=== PATIENT | female | born 1990 | race Caucasian/White ===

== ENCOUNTER 2020-09-13 04:00 | Inpatient (IN) | payer OTHER ==
[~2020-09-13] VITALS: Ht 160 cm; Wt 84.8 kg
[2020-09-13 04:37] LABS: BASOPHILS % (AUTO) 0.3 % (0.0-2.0); EOSINOPHILS # (AUTO) 0.1 K/uL (0.0-0.4); EOSINOPHILS % (AUTO) 0.4 % (0.0-4.0); HEMATOCRIT 39.6 % (36-48); HEMOGLOBIN 13.4 g/dL (12.0-16.0); LYMPHOCYTES # (AUTO) 1.6 K/uL (1.0-5.5); LYMPHOCYTES % (AUTO) 12.1 % (20.5-51.5); MEAN CORPUSCULAR HEMOGLOBIN 31 pg (27-31); MEAN CORPUSCULAR HGB CONC 34 % (32-36); MEAN CORPUSCULAR VOLUME 92 fL (79.0-98.0); MONOCYTES # (AUTO) 0.8 K/uL (0.0-1.0); MONOCYTES % (AUTO) 6.2 % (1.7-9.3); NEUTROPHILS # (AUTO) 10.6 K/uL (1.8-7.7); PLATELET COUNT (AUTO) 209 K/uL (130-430); RED BLOOD CELL COUNT(AUTO) 4.29 MIL/uL (4.2-6.2)
[2020-09-13 04:54] LABS: ALBUMIN 2.6 g/dL (3.4-4.8); CALCIUM 8.6 mg/dL (8.4-11.0); CREATININE 0.63 mg/dL (0.55-1.30); POTASSIUM 3.5 mmol/L (3.5-5.1); TOTAL BILIRUBIN 0.4 mg/dL (0.0-1.0)
[2020-09-13] MEDS ORDERED: METOCLOPRAMIDE HCL 10 MG/2 ML VIAL IVP ONE ×2 (05:00→15:45)
[2020-09-13] MEDS ORDERED: CEFAZOLIN 2 GM IVPB PREMIX 50 ML IV ONE (05:00)
[2020-09-13 05:05] VITALS: BP_SYST 118
[2020-09-13] MEDS: LR 1,000 ML IV SCH ×2 (05:13→06:52)
[2020-09-13 07:12] LABS: BILIRUBIN,URINE NEGATIVE (NEGATIVE); BLOOD, URINE 1+ (NEGATIVE); CLARITY/URINE CLEAR (CLEAR); COLOR,URINE YELLOW (YELLOW); GLUCOSE,URINE NEGATIVE (NEGATIVE); KETONES,URINE 1+ (NEGATIVE); LEUKOCYTE ESTERASE ,URINE 1+ (NEGATIVE); NITRITE, URINE NEGATIVE (NEGATIVE); PROTEIN URINE NEGATIVE (NEGATIVE); UROBILINOGEN,URINE 0.2 (0.2-1.0)
[2020-09-13] MEDS ORDERED: KETOROLAC TROMETHAMINE 60 MG/2 ML VIAL IM PRN (08:15)
[2020-09-13] MEDS ORDERED: ONDANSETRON HCL 4 MG/2 ML VIAL IVP PRN (08:15)
[2020-09-13] MEDS ORDERED: NALBUPHINE HCL 10 MG/ML AMP IVP PRN (08:15)
[2020-09-13] MEDS ORDERED: DIPHENHYDRAMINE INJ 50 MG/ML VIAL IVP PRN (08:15)
[2020-09-13] MEDS ORDERED: MORPHINE SULFATE 10MG/10ML PF AMP SP SCH (08:15)
[2020-09-13] MEDS ORDERED: NALOXONE HCL 0.4 MG/ML AMP (NARCAN) IVP PRN ×3 (08:15→08:45)
[2020-09-13] MEDS ORDERED: fentaNYL CITRATE/PF 100 MCG/2 ML AMP IVP PRN ×2 (08:15)
[2020-09-13 08:33] LABS: BACTERIA,URINE None Seen /HPF (None Seen)
[2020-09-13 08:35] VITALS: BP_SYST 108
[2020-09-13 08:39] LABS: YEAST,URINE None Seen /HPF (None Seen)
[2020-09-13] MEDS ORDERED: NS 1000 ML IV.SOLN IV ONE (08:40)
[2020-09-13] MEDS ORDERED: BUPIVACAINE /PF 0.75% 10 ML VIAL INJ ONE (08:40)
[2020-09-13] MEDS ORDERED: MORPHINE SULFATE 10MG/10ML PF AMP ONE (08:40)
[2020-09-13] MEDS ORDERED: OXYCODONE/ACETAMINOPHEN *10*mg/325 mg TABLET PO PRN (08:45)
[2020-09-13] MEDS ORDERED: MEASLES,MUMPS&RUBELLA VACC/PF 12500 UNIT/0.5 ML VIAL SUBQ PRN (08:45)
[2020-09-13] MEDS ORDERED: BISACODYL 10 MG/SUPPOSITORY RC PRN (08:45)
[2020-09-13] MEDS ORDERED: TEMAZEPAM 15 MG CAPSULE PO PRN (08:45)
[2020-09-13] MEDS ORDERED: ANUSOL 1 EA SUPP.RECT (PREPARATION H) RC PRN (08:45)
[2020-09-13] MEDS ORDERED: HYDROcodone/ACETAMIN 5-325 MG TAB (NORCO/ VICODIN) PO PRN (08:45)
[2020-09-13] MEDS ORDERED: RHO(D) IMMUNE GLOBULIN/MALTOSE 1500 UNITS/1.3 ML (WINHRO) IM PRN (08:45)
[2020-09-13] MEDS ORDERED: DIPH-TET-PERTUS Vaccine 0.5 ML VIAL (ADACEL) I.M. PRN (08:45)
[2020-09-13] MEDS ORDERED: LANOLIN 7 GM OINT. TP PRN (08:45)
[2020-09-13] MEDS ORDERED: LR 1,000 ML IV SCH (08:45)
[2020-09-13] MEDS ORDERED: OXYTOCIN/0.9 % SODIUM CHLORIDE 1,000 ML IV ONE (10:11)
[2020-09-13] MEDS: OXYTOCIN/0.9 % SODIUM CHLORIDE 1,000 ML IV SCH ×3 (11:00→18:45)
[2020-09-13] MEDS: CEFAZOLIN 1 GM IVPB PREMIX 50 ML IV SCH ×2 (11:51→17:50)
[2020-09-13] MEDS ORDERED: KETOROLAC TROMETHAMINE 30 MG VIAL IVP SCH (12:00)
[2020-09-13] MEDS ORDERED: METOCLOPRAMIDE HCL 10 MG/2 ML VIAL ONE (16:09)
[2020-09-13] MEDS: KETOROLAC TROMETHAMINE 30 MG VIAL IVP SCH (17:50)
[2020-09-13] MEDS: SIMETHICONE 80 MG TAB.CHEW PO PRN (17:50)
[2020-09-14] MEDS: KETOROLAC TROMETHAMINE 30 MG VIAL IVP SCH (00:40)
[2020-09-14] MEDS: CEFAZOLIN 1 GM IVPB PREMIX 50 ML IV SCH (00:40)
[2020-09-14 09:29] LABS: BASOPHILS % (AUTO) 0.4 % (0.0-2.0); EOSINOPHILS % (AUTO) 0.4 % (0.0-4.0); HEMOGLOBIN 10.6 g/dL (12.0-16.0); LYMPHOCYTES # (AUTO) 1.5 K/uL (1.0-5.5); LYMPHOCYTES % (AUTO) 13.6 % (20.5-51.5); MEAN CORPUSCULAR HEMOGLOBIN 32 pg (27-31); MEAN CORPUSCULAR HGB CONC 34 % (32-36); MONOCYTES # (AUTO) 0.8 K/uL (0.0-1.0); MONOCYTES % (AUTO) 7.2 % (1.7-9.3); NEUTROPHILS # (AUTO) 8.5 K/uL (1.8-7.7); NEUTROPHILS % (AUTO) 78.4 % (40.0-70.0); PLATELET COUNT (AUTO) 182 K/uL (130-430); RED BLOOD CELL COUNT(AUTO) 3.31 MIL/uL (4.2-6.2); RED CELL DISTRIBUTION WIDTH 14.2 % (9.0-15.0); WHITE BLOOD COUNT (AUTO) 10.9 K/uL (4.8-10.8)
[2020-09-14 09:35] LABS: MEAN CORPUSCULAR VOLUME 94 fL (79.0-98.0)
[2020-09-14] MEDS: IBUPROFEN 600 MG TABLET PO SCH ×3 (12:10→23:41)
[2020-09-14] MEDS: OXYCODONE/ACETAMINOPHEN 5-325 TABLET PO PRN ×2 (12:11→17:49)
[2020-09-14] MEDS: DOCUSATE SODIUM 100 MG CAPSULE PO PRN ×2 (17:48→23:43)
[2020-09-14] MEDS: SIMETHICONE 80 MG TAB.CHEW PO PRN ×2 (20:56→23:43)
[2020-09-15] MEDS: IBUPROFEN 600 MG TABLET PO SCH ×3 (06:06→17:34)
[2020-09-15] MEDS: SENNOSIDES/DOCUSATE SODIUM 1 TAB TABLET(SENOKOT-S) PO PRN ×2 (06:07→14:37)
[2020-09-15] MEDS: SIMETHICONE 80 MG TAB.CHEW PO PRN ×2 (06:07→14:37)
[2020-09-15] MEDS: DOCUSATE SODIUM 100 MG CAPSULE PO PRN (14:37)
== END 2020-09-15 23:27 | disposition home or self-care (01) | DRG 788 ==
LOC: SPU 04:00
PROVIDERS: ADMIT Specialist; ATTEND Specialist
PROC: 10D00Z1 Extraction of Products of Conception, Low, Open Approach (ICD-10-PCS; principal; 2020-09-13 07:30)
DX: O77.0 Labor and delivery complicated by meconium in amniotic fluid (principal); Z96.649 Presence of unspecified artificial hip joint; Z20.828 Contact with and (suspected) exposure to other viral communicable diseases; Z37.0 Single live birth; Z3A.39 39 weeks gestation of pregnancy
CPT/HCPCS: 36415; 80053; 81000-TC; 85025; 86592; 86886; 86900; 86901; 88307; 94760; J0690; J1885; J2274; J2405; J2590; J2765; J3490; J7030; U0003

== ENCOUNTER 2023-05-27 05:15 | Inpatient (IN) | payer OTHER ==
[~2023-05-27] VITALS: Ht 160 cm; Wt 87.1 kg
[2023-05-27] MEDS ORDERED: CEFAZOLIN 2 GM IVPB PREMIX 50 ML IV ONE (05:30)
[2023-05-27 05:53] LABS: BASOPHILS % (AUTO) 0.5 % (0.0-2.0); EOSINOPHILS # (AUTO) 0.1 K/uL (0.0-0.4); EOSINOPHILS % (AUTO) 0.6 % (0.0-4.0); HEMATOCRIT 36.9 % (36-48); HEMOGLOBIN 12.2 g/dL (12.0-16.0); LYMPHOCYTES # (AUTO) 1.3 K/uL (1.0-5.5); LYMPHOCYTES % (AUTO) 14.7 % (20.5-51.5); MEAN CORPUSCULAR HEMOGLOBIN 30 pg (27-31); MEAN CORPUSCULAR HGB CONC 33 % (32-36); MEAN CORPUSCULAR VOLUME 91 fL (79.0-98.0); MONOCYTES # (AUTO) 0.6 K/uL (0.0-1.0); MONOCYTES % (AUTO) 6.9 % (1.7-9.3); NEUTROPHILS # (AUTO) 6.9 K/uL (1.8-7.7); NEUTROPHILS % (AUTO) 77.3 % (40.0-70.0); PLATELET COUNT (AUTO) 183 K/uL (130-430); RED BLOOD CELL COUNT(AUTO) 4.04 MIL/uL (4.2-6.2); RED CELL DISTRIBUTION WIDTH 13.9 % (9.0-15.0); WHITE BLOOD COUNT (AUTO) 8.9 K/uL (4.8-10.8)
[2023-05-27] MEDS: LR 1,000 ML IV SCH ×2 (06:01→06:35)
[2023-05-27 06:07] VITALS: BP_SYST 116; PULSE 82; RESP 18; TEMP 98.2
[2023-05-27 06:09] LABS: CLARITY/URINE SLIGHTLY CLOUDY (CLEAR); COLOR,URINE YELLOW (YELLOW)
[2023-05-27 06:10] LABS: CREATININE 0.62 mg/dL (0.55-1.30); POTASSIUM 3.5 mmol/L (3.5-5.1)
[2023-05-27 06:16] LABS: BILIRUBIN,URINE 1+ (NEGATIVE); BLOOD, URINE 2+ (NEGATIVE); GLUCOSE,URINE NEGATIVE (NEGATIVE); KETONES,URINE 1+ (NEGATIVE); LEUKOCYTE ESTERASE ,URINE 2+ (NEGATIVE); PROTEIN URINE 1+ (NEGATIVE)
[2023-05-27 06:17] LABS: ALBUMIN 2.4 g/dL (3.4-4.8); TOTAL BILIRUBIN 0.4 mg/dL (0.0-1.0); TOTAL PROTEIN, SERUM 6.1 g/dL (6.4-8.3)
[2023-05-27 06:17] LABS: NITRITE, URINE NEGATIVE (NEGATIVE)
[2023-05-27 06:20] LABS: BACTERIA,URINE MODERATE /HPF (None Seen)
[2023-05-27] MEDS ORDERED: OXYTOCIN/0.9 % SODIUM CHLORIDE 20 UNITS/1,000 ML BAG IV ONE (07:51)
[2023-05-27] MEDS ORDERED: LR 1,000 ML IV.SOLN IV ONE (07:51)
[2023-05-27] MEDS ORDERED: KETOROLAC TROMETHAMINE 30 MG VIAL ONE (07:51)
[2023-05-27] MEDS ORDERED: METOCLOPRAMIDE HCL 10 MG/2 ML VIAL ONE ×2 (07:51→18:33)
[2023-05-27] MEDS ORDERED: ONDANSETRON HCL 4 MG/2 ML VIAL ONE (07:51)
[2023-05-27] MEDS ORDERED: NS IRRIG SOLN 1000 ML IR ONE (07:51)
[2023-05-27] MEDS ORDERED: ePHEDrine sulfate 50 MG/ML VIAL ONE (07:51)
[2023-05-27] MEDS ORDERED: PHENYLEPHRINE HCL 10 MG/ML VIAL (NEOSYNEPHRINE) ONE (07:51)
[2023-05-27] MEDS ORDERED: OXYTOCIN 10 UNIT/ML VIAL ONE (07:51)
[2023-05-27] MEDS ORDERED: MORPHINE SULFATE 10MG/10ML PF AMP ONE (07:51)
[2023-05-27] MEDS ORDERED: KETOROLAC TROMETHAMINE 60 MG/2 ML VIAL IM PRN (08:45)
[2023-05-27] MEDS ORDERED: MORPHINE SULFATE 10MG/10ML PF AMP SP SCH (08:45)
[2023-05-27] MEDS ORDERED: DIPHENHYDRAMINE INJ 50 MG/ML VIAL IM PRN (08:45)
[2023-05-27] MEDS ORDERED: NALOXONE HCL 0.4 MG/ML AMP (NARCAN) IVP PRN ×2 (08:45→09:00)
[2023-05-27] MEDS ORDERED: ONDANSETRON HCL 4 MG/2 ML VIAL IVP PRN (08:45)
[2023-05-27 08:57] VITALS: BP_SYST 111
[2023-05-27] MEDS ORDERED: BISACODYL 10 MG/SUPPOSITORY RC PRN (09:00)
[2023-05-27] MEDS ORDERED: MEASLES,MUMPS&RUBELLA VACC/PF 12500 UNIT/0.5 ML VIAL SUBQ PRN (09:00)
[2023-05-27] MEDS ORDERED: OXYCODONE/ACETAMINOPHEN *10*mg/325 mg TABLET PO PRN (09:00)
[2023-05-27] MEDS ORDERED: TEMAZEPAM 15 MG CAPSULE PO PRN (09:00)
[2023-05-27] MEDS ORDERED: LANOLIN 7 GM OINT. TP PRN (09:00)
[2023-05-27] MEDS ORDERED: LR 1,000 ML IV SCH (09:00)
[2023-05-27] MEDS ORDERED: DIPHTH,PERTUSS(ACELL),TET VAC 0.5 ML VIAL (Tdap) I.M. PRN (09:00)
[2023-05-27] MEDS ORDERED: RHO(D) IMMUNE GLOBULIN/MALTOSE 1500 UNITS/1.3 ML (WINHRO) IM PRN (09:00)
[2023-05-27] MEDS ORDERED: ANUSOL 1 EA SUPP.RECT (PREPARATION H) RC PRN (09:00)
[2023-05-27] MEDS: SIMETHICONE 80 MG TAB.CHEW PO PRN ×5 (12:01→23:59)
[2023-05-27] MEDS: CEFAZOLIN 1 GM IVPB PREMIX 50 ML IV SCH ×2 (12:01→17:58)
[2023-05-27] MEDS: OXYTOCIN/0.9 % SODIUM CHLORIDE 1,000 ML IV SCH ×2 (15:09→21:05)
[2023-05-27] MEDS: KETOROLAC TROMETHAMINE 30 MG VIAL IVP SCH (17:58)
[2023-05-27] MEDS ORDERED: METOCLOPRAMIDE HCL 10 MG/2 ML VIAL IVP PRN (18:30)
[2023-05-27] MEDS: SENNOSIDES/DOCUSATE SODIUM 1 TAB TABLET(SENOKOT-S) PO SCH (20:04)
[2023-05-27] MEDS: DOCUSATE SODIUM 100 MG CAPSULE PO SCH (20:04)
[2023-05-28] MEDS: CEFAZOLIN 1 GM IVPB PREMIX 50 ML IV SCH
[2023-05-28] MEDS: SIMETHICONE 80 MG TAB.CHEW PO PRN ×8 (03:04→23:59)
[2023-05-28] MEDS: OXYTOCIN/0.9 % SODIUM CHLORIDE 1,000 ML IV SCH (03:04)
[2023-05-28 06:34] LABS: BASOPHILS % (AUTO) 0.4 % (0.0-2.0); EOSINOPHILS % (AUTO) 0.3 % (0.0-4.0); HEMATOCRIT 33.1 % (36-48); LYMPHOCYTES # (AUTO) 1.3 K/uL (1.0-5.5); LYMPHOCYTES % (AUTO) 12.6 % (20.5-51.5); MEAN CORPUSCULAR HEMOGLOBIN 31 pg (27-31); MEAN CORPUSCULAR HGB CONC 33 % (32-36); MEAN CORPUSCULAR VOLUME 93 fL (79.0-98.0); MONOCYTES # (AUTO) 0.9 K/uL (0.0-1.0); MONOCYTES % (AUTO) 8.6 % (1.7-9.3); NEUTROPHILS # (AUTO) 7.8 K/uL (1.8-7.7); NEUTROPHILS % (AUTO) 78.1 % (40.0-70.0); PLATELET COUNT (AUTO) 153 K/uL (130-430); RED BLOOD CELL COUNT(AUTO) 3.55 MIL/uL (4.2-6.2); RED CELL DISTRIBUTION WIDTH 14.1 % (9.0-15.0)
[2023-05-28] MEDS: KETOROLAC TROMETHAMINE 30 MG VIAL IVP SCH ×3 (06:46→12:08)
[2023-05-28] MEDS: DOCUSATE SODIUM 100 MG CAPSULE PO SCH ×2 (09:01→21:03)
[2023-05-28] MEDS: IBUPROFEN 600 MG TABLET PO SCH (17:57)
[2023-05-28] MEDS: SENNOSIDES/DOCUSATE SODIUM 1 TAB TABLET(SENOKOT-S) PO SCH (21:03)
[2023-05-29] MEDS: HYDROcodone/ACETAMIN 5-325 MG TAB (NORCO/ VICODIN) PO PRN ×2 (02:35→16:52)
[2023-05-29] MEDS: SIMETHICONE 80 MG TAB.CHEW PO PRN ×4 (03:00→16:53)
[2023-05-29] MEDS: IBUPROFEN 600 MG TABLET PO SCH ×3 (06:47→12:06)
[2023-05-29] MEDS: DOCUSATE SODIUM 100 MG CAPSULE PO SCH (09:29)
[2023-05-29] MEDS: SENNOSIDES/DOCUSATE SODIUM 1 TAB TABLET(SENOKOT-S) PO SCH (16:52)
== END 2023-05-29 17:20 | disposition home or self-care (01) | DRG 788 ==
LOC: SPU 05:15
PROVIDERS: ADMIT Specialist; ATTEND Specialist
PROC: 10D00Z1 Extraction of Products of Conception, Low, Open Approach (ICD-10-PCS; principal; 2023-05-27 07:51)
DX: O34.211 Maternal care for low transverse scar from previous cesarean delivery (principal); N73.6 Female pelvic peritoneal adhesions (postinfective); O99.892 Other specified diseases and conditions complicating childbirth; Z37.0 Single live birth; Z3A.39 39 weeks gestation of pregnancy
CPT/HCPCS: 36415; 80053; 81000; 85025; 86592; 86886; 86900; 86901; 87086; J0690; J1885; J2274; J2370; J2405; J2590; J2765; J7120